=== PATIENT | male | born 2000 | race African-American/Black ===

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

== ENCOUNTER 2018-02-09 22:26 | Emergency (ER) | payer SELFPAY ==
[~2018-02-09] VITALS: Ht 170.2 cm; Wt 65.9 kg
[2018-02-09 22:33] VITALS: Ht 170.2 cm; Wt 65.9 kg
[2018-02-10] MEDS ORDERED: BENADRYL25 MG PO (00:44)
[2018-02-10] MEDS ORDERED: EPIPEN0.3 MG/0.3 IM (00:46)
[2018-02-10 01:11] VITALS: BP 134/66
== END 2018-02-10 01:13 | disposition home or self-care (01) ==
LOC: D.ER 22:26
DX: T78.40XA Allergy, unspecified, initial encounter (principal); X58.XXXA Exposure to other specified factors, initial encounter; R06.00 Dyspnea, unspecified